=== PATIENT | female | born 1985 | race Two or more races ===

== ENCOUNTER 2019-07-14 03:40 | Emergency (ER) | payer SELFPAY ==
[~2019-07-14] VITALS: Ht 160 cm; Wt 61.2 kg
[2019-07-14 03:55] VITALS: BP 159/79
== END 2019-07-14 04:01 | disposition left against medical advice (07) ==
LOC: EDBD 03:40 → ER 03:46 → EDSEX 03:46 → ER 04:01
DX: Z02.89 Encounter for other administrative examinations (principal)